=== PATIENT | male | born 1950 | race Caucasian/White ===

== ENCOUNTER 2017-02-27 05:21 | Day surgery (SDC) | payer MEDICARE ==
[~2017-02-27] VITALS: Ht 174 cm; Wt 94.9 kg
[2017-02-27] VITALS (7 sets, daily range): BP systolic 87–125; BP diastolic 51–74; PULSE 80–100; RESP 12–20; TEMP 97.2–98.2; O2SAT 95–99; Ht 174 cm; Wt 94.9 kg
[~2017-02-27 05:21] MED LIST: ASPI-611 PO; ATOR20TA59 PO; LISI-114 PO; METF10002 PO; METO100T97 PO
--- OUTSIDE RECORDS SUMMARY | 2017-02-27 05:25 | XMS REPORT | Referral Summary ---
Author Author [facility] Organization [facility] Address Unknown Phone Unavailable Care Team Providers Care Farmer And Grazier Name Role Phone Helena Vasquez Primary Care Physician [phone] Encounter VC Date(s): 06/07/16 - 06/07/16 [facility] [address] [place] [address] FLAKITA Prajapati [id number] Discharge Disposition: 01-Home or Self Care Attending Physician: Shahid Vasquez MD Admitting Physician: Shahid Vasquez MD Vital Signs Most recent to 1 oldest [Reference Range]: Temperature Tympanic 36.2 degC [36.6-38.1 degC] *LOW* (06/07/16 7:23 AM) Peripheral Pulse 80 bpm Rate [60-100 bpm] (06/07/16 7:23 AM) Blood Pressure 130/70 mmHg [90-140/60-90 mmHg] (06/07/16 7:23 AM) SpO2 96 % (06/07/16 7:23 AM) Problem List Condition Effective Dates Status Health Status Informant Benign essential Active hypertension(Confirm ed) BPH with urinary Active obstruction(Confirme d) Mild CAD(Confirmed) Active Hypercholesterolemia Active (Confirmed) Chronic radicular Active low back pain(Confirmed) Well controlled type Active 2 diabetes mellitus(Confirmed) Allergies, Adverse Reactions, Alerts Substance Reaction Severity Status kimberly bose Active Medications Aspirin Low Dose 81 mg, Oral, Daily, 0 Refill(s) Start Date: 12/06/15 Status: Ordered Crestor 10 mg oral tablet 10 mg 1 tabs, Oral, Daily, # 90 tabs, 3 Refill(s), Pharmacy: [facility], 1 tabs Oral Daily,x90 days Start Date: 06/07/16 Stop Date: 06/02/17 Status: Ordered lisinopril 5 mg oral tablet 5 mg 1 tabs, Oral, Daily, # 90 tabs, 3 Refill(s), Pharmacy: [facility], 1 tabs Oral Daily,x90 days Start Date: 06/07/16 Stop Date: 06/02/17 Status: Ordered metFORMIN 500 mg oral tablet, extended release 500 mg 1 tabs, Oral, BID, # 180 tabs, 3 Refill(s), Pharmacy: [facility], 1 tabs Oral BID,x90 days Start Date: 06/07/16 Stop Date: 06/02/17 Status: Ordered metoprolol succinate 100 mg oral tablet, extended release 100 mg 1 tabs, Oral, Daily, not the Tartrate, # 90 tabs, 3 Refill(s), Pharmacy: [facility] Start Date: 06/07/16 Status: Ordered Results No data available for this section Immunizations Vaccine Date Refusal Reason pneumococcal 13-valent conjugate vaccine 12/06/15 Procedures Procedure Date Related Diagnosis Body Site Retinal detachment1 2014 Discectomy for intervertebral herniated disc, 2013 nucleus pulposus2 Cardiac catheterization3 2008 Colonoscopy4 03/16/08 Sigmoidoscope5 01/06/08 Discectomy6 1987 1left eye buckling procedure by Dr. Meyer 2in [place]--lumbar discectomy 3stents in 2 coronary arteries--Dr. Steward 4polyp at 50 cm. from the anal verge- benign, sigmoid diverticulosis 5lg. pedunculated polyp of 1 cm at 42 cm , biopsied-yperplastic polyp 6C5-[address] Wilcox Social History Social History Type Response Smoking Status Former smoker; Type: Cigarettes1 1Quit over 50 years ago Assessment and Plan Extracted from: Title: Ambulatory Patient Education Author: Shahid Vasquez MD Date: 06/07 Preventive Medicine Heart Disease Prevention Heart disease is a leading cause of . There are many things you can do to help prevent heart disease. BE PHYSICALLY ACTIVE Physical activity is good for your heart. It helps control your blood pressure, cholesterol levels, and weight. Try to be physically active every day. Ask your health care provider what activities are best for you. BE A HEALTHY WEIGHT Extra weight can strain your heart and affect your blood pressure and cholesterol levels. Lose weight with diet and exercise if recommended by your health care provider. EAT HEART-HEALTHY FOODS Follow a healthy eating plan as recommended by your health care provider or dietitian. Heart-healthy foods include: High-fiber foods. These include oat bran, oatmeal, and whole-grain breads and cereals. Fruits and vegetables. Avoid: Alcohol. Fried foods. Foods high in saturated fat. These include meats, butter, whole dairy products, shortening, and coconut or palm oil. Salty foods. These include canned food, luncheon meat, salty snacks, and fast food. KEEP YOUR CHOLESTEROL LEVELS UNDER CONTROL Cholesterol is a substance that is used for many important functions. When your cholesterol levels are high, cholesterol can stick to the insides of your blood vessels, making them narrow or clog. This can lead to chest pain (angina) and a heart attack. Keep your cholesterol levels under control as recommended by your health care provider. Have your cholesterol checked at least once a year. Target cholesterol levels (in mg/dL) for most people are: Total cholesterol below 200. LDL cholesterol below 100. HDL cholesterol above 40 in men and above 50 in women. Triglycerides below 150. KEEP YOUR BLOOD PRESSURE UNDER CONTROL Having high blood pressure (hypertension) puts you at risk for stroke and other forms of heart disease. Keep your blood pressure under control as recommended by your health care provider. Ask your health care provider if you need treatment to lower your blood pressure. If you are 1839 years of age, have your blood pressure checked every 35 years. If you are 40 years of age or older, have your blood pressure checked every year. DO NOT USE TOBACCO PRODUCTS Tobacco smoke can damage your heart and blood vessels. Do not use any tobacco products including cigarettes, chewing tobacco, or electronic cigarettes. If you need help quitting, ask your health care provider. TAKE MEDICINES DIRECTED Take medicines only as directed by your health care provider. Ask your health care provider whether you should take an aspirin every day. Taking aspirin can help reduce your risk of heart disease and stroke. FOR MORE INFORMATION To find out more about heart disease, visit the [place] [employer]'s website at www.americanheart.org This information is not intended to replace advice given to you by your health care provider. Make sure you discuss any questions you have with your health care provider. Document Released: 06/24/2005 Document Revised: 12/01/2015 Document Reviewed: Exit[employer] Patient Information 2016 [employer] [facility]. No follow up information was provided. Extracted from: Title: Male physical Author: Pedro, Shahid B MD Date: 06/07/16 Impression and Plan Diagnosis Mild CAD (NTE16-LN I25.10, Working, Medical). Benign essential hypertension (LVQ81-BT I10, Working, Medical). Hypercholesterolemia (YQV88-AZ E78.0, Working, Medical). BPH with urinary obstruction (DIX35-VU N40.1, Working, Medical). Chronic radicular low back pain (CLQ09-XQ M54.10, Working, Medical). Well controlled type 2 diabetes mellitus (XRS54-ZW E11.9, Working, Medical). Obesity (MXR20-DS E66.9, Working, Medical). Plan: 1) Healthy diet and daily exercise helps most things. 2) Continue your current meds. 3) Schedule a colonoscopy by seeing Dr. Lee. 4) Get fasting lab. 5) Immunizations recommended: Twinrix (hepatitis A and B) series of 3; Shingles vaccine. You said that you didn't want the Pneumovax vaccine. 6) See me in one year and as needed. 7) You weren't interested in a sleep study to evaluate for sleep apnea, which I would recommend. . Orders Orders (Selected) Outpatient Orders Ordered Office Visit Level 5 Est 12526: . Dx/Order Association Plan: Diagnosis: BPH with urinary obstruction Comment: Ordered: Office Visit Level 5 Est 33839; 06/07/16 8:02:00 CDT, Well controlled type 2 diabetes mellitus | Mild CAD | Benign essential hypertension | BPH with urinary obstruction | Hypercholesterolemia Diagnosis: Benign essential hypertension Comment: Ordered: Office Visit Level 5 Est [id number]; 06/07/16 8:02:00 CDT, Well controlled type 2 diabetes mellitus | Mild CAD | Benign essential hypertension | BPH with urinary obstruction | Hypercholesterolemia Diagnosis: Chronic radicular low back pain Comment: Diagnosis: Hypercholesterolemia Comment: Ordered: Office Visit Level 5 Est [id number]; 06/07/16 8:02:00 CDT, Well controlled type 2 diabetes mellitus | Mild CAD | Benign essential hypertension | BPH with urinary obstruction | Hypercholesterolemia Diagnosis: Mild CAD Comment: Ordered: Office Visit Level 5 Est [id number]; 06/07/16 8:02:00 CDT, Well controlled type 2 diabetes mellitus | Mild CAD | Benign essential hypertension | BPH with urinary obstruction | Hypercholesterolemia Diagnosis: Obesity Comment: Diagnosis: Well controlled type 2 diabetes mellitus Comment: Ordered: Office Visit Level 5 Est [id number]; 06/07/16 8:02:00 CDT, Well controlled type 2 diabetes mellitus | Mild CAD | Benign essential hypertension | BPH with urinary obstruction | Hypercholesterolemia End of Orders ."
--- NOTE | 2017-02-27 05:45 | NUR ---
Pt arrival clinical staff anesthesiologist notified by house player that this pt was in waiting room waiting to be admitted for procedure. drawing kiln supervisor verbalized to clinical staff anesthesiologist that pt is diabetic, blood sugar may be low, pts head fell back while sitting in chair, feels light headed, clammy. This RN to waiting area with wheelchair. pt is responsive at this time. assisted to wheelchair x2, then admitted to preop room 5. Blood sugar obtained at this time, with a result of 116. Pt states that he does not check blood sugar at home, but this is probably lower than normal because he has not eaten. Vital signs also obtained, all WNL. Pt admitted, call light within reach, bed rail up x2.
--- NOTE | 2017-02-27 06:35 | NUR ---
status/anesthesia Pt calls nursing staff and states that he is feeling light headed again, nauseated. Alcon Black CRNA here. notified. Alcon in room to assess pt. Pt states that "the feeling comes and goes where I feel like I need to pass out." bed rail up x2. call light within reach. Marc Reddy CRNA notified via phone by Alcon Black CRNA. Orders to open up fluids at this time. Will continue to monitor.
[2017-02-27] MEDS ORDERED: LIDOCAINE 1% (10mg/ml) 2ml SDV INJ ONE (07:00)
[2017-02-27] MEDS ORDERED: LR 1,000 ML IV SCH (07:00)
--- NOTE | 2017-02-27 07:24 | ANESPREOP ---
Anesthesia Record Date and Time DATE: 02/27/17 TIME: 07:22 Pre-Op Diagnosis screening Proposed Surgical Procedure COLONOSCOPY NPO since: mn Allergies: Coded Allergies: nabumetone (Verified Allergy, Unknown, 02/27/17) Ht/Wt/BMI Height: 5 ' 8.50 " Weight: 94.900 kg BMI: 31.4 kg/m2 Vital Signs Date Time Temp Pulse Resp B/P Pulse Ox O2 Delivery O2 Flow Rate FiO2 02/27/17 06:15 98.2 100 15 116/71 95 Room Air Medications Inpatient Medications Current Medications Medications (Trade) Dose Ordered Sig/Emily Start Time Stop Time Status Last Admin Dose Admin Lactated Ringer's (Lactated Ringers) 1,000 ml @ 50 mls/hr Q20H 02/27/17 07:00 02/27/17 06:33 50 MLS/HR Aspirin (Aspirin) 81 Mg Tablet, 81 MG PO DAILY, (Reported) Last Taken: on 02/20/17 Atorvastatin Calcium (Atorvastatin Calcium) 20 Mg Tablet, 1 TAB PO HS, (Reported) Last Taken: on 02/26/172129 Lisinopril (Lisinopril) 5 Mg Tablet, 5 MG PO DAILY, (Reported) Last Taken: on 02/26/172129 Metformin HCl (Metformin HCl) 1,000 Mg Tablet, 1 TAB PO BIDWM, (Reported) Take one tablet, by mouth, twice daily with meals Last Taken: on 02/26/172129 Metoprolol Tartrate (Metoprolol Tartrate) 100 Mg Tablet, 100 MG PO DAILY, (Reported) Last Taken: on 02/26/17 0800 Discontinued Medications Metformin Hcl (Metformin Hcl) 500 Mg Tablet, 500 MG PO DAILY, (Reported) Currently on Beta Delano: Yes Beta Delano Last Taken: metoprolol 100mg 02/26/17 at 0800 Medical/Surgical History Anesthesia PMH: Reports: *Diabetes (niddm ), *Hypertension (mi 7 yrs ago, Seen Dr. Steward 2 weeks ago, stress test and cleared for surg ), CVA/Stroke/TIA, Reflux (OCC), Denies: *Angina, *PA, Anesthesia Reactions (NO AIRWAY ISSUES), Arthritis, Asthma, CHF, COPD, Cancer, Clotting Problems, Glaucoma, Hiatal Hernia , Malignant Hyperthermia, Pneumonia, Renal Disease, Seizures, Sleep Apnea, Thyroid Disease, Tuberculosis Smoking Status: Never smoker Has pt. smoked today?: No Use Chewing Tobacco?: No Second Hand Exposure: No Substance Use Type: does not use Past Surgical History Orthopedic Surgeries: Abdominal Surgeries: Genitourinary Surgeries: Cardiac Surgeries: Yes - CATH WITH STENTS Endocrine Surgeries: Reproductive Surgeries: Neurological Surgeries: Ear Surgeries: Nose Surgeries: Throat Surgeries: Other Surgeries: Anesthesia Adverse Reactions: FOUND none Pertinent Findings EKG Rhythm: Sinus Rhythm Physical Exam Respiratory: Bilat breath sounds equal, Lungs clear Cardiovascular: FOUND Regular rate, rhythm, FOUND No murmur Airway Assessment TMD: 3 Fingerbreadths Neck Extension: Fair Overall Assessment: No Airway Concerns ASA: 3 Plan Anesthesia Plan: TIVA Discussion Discussed risks/options/alternatives of anesthesia and questions answered. Patient consents. Nursing pain assessment noted. Attestation Statement Prior to the delivery of any anesthetic medication, I examined the patient, developed the plan, obtained the patient's consent and discussed the risk and benefits of the procedure with the patient/guardian. MATT SINGER CRNA Feb 27, 2017 07:24
[2017-02-27] MEDS ORDERED: LIDOCAINE 2% (20mg/ml) 5ml PF SDV ONE (07:28)
[2017-02-27] MEDS ORDERED: PROPOFOL 500mg 50 ML IV ONE (07:28)
--- NOTE | 2017-02-27 09:21 | ANESPO ---
Post-Op Note Date 02/27/17 Time: 09:00 Status Pt Participated in Evaluation: Pt participated in person Vital Signs Date Time Temp Pulse Resp B/P Pulse Ox O2 Delivery O2 Flow Rate FiO2 02/27/17 08:55 82 20 125/71 99 Room Air 02/27/17 08:03 97.2 Respiratory Function: Airway patent Cardiovascular Function: Regular pulse Mental Status: Alert/oriented Pain Level Intensity: 0 Hydration: IV infusing Complications during Recovery None apparent Follow-Up Instructions Instructions Per Surgeon MATT SINGER CRNA Feb 27, 2017 09:21
--- NOTE | 2017-02-27 15:47 | OPNOTEF ---
DATE OF SERVICE 02/27/17 SURGEON Quinn Lee MD PREOPERATIVE DIAGNOSIS Colorectal cancer surveillance/personal history for colon polyps. POSTOPERATIVE DIAGNOSES Colorectal cancer surveillance/personal history for colon polyps, minimal sigmoid diverticulosis. PROCEDURE Colonoscopy. ANESTHESIA TIVA BRIEF HISTORY/INDICATIONS Mr. Manzanares is a 66-year-old gentleman who about ten years ago had undergone a colonoscopy and was found to have a polyp within the colon. This was not adenomatous in nature. Patient presents today to undergo followup colonoscopy. For completeness please refer to notes included in the patient's chart. FINDINGS Upon colonoscopy was no evidence for angiodysplastic lesions, polyps or geoff malignancies. He was found have a few scattered diverticula within the sigmoid colon region. NARRATIVE OF PROCEDURE After informed consent was obtained the patient was brought to the endoscopy suite and placed on the table in left lateral decubitus position. Patient subsequently underwent total intravenous anesthesia by the nurse shellfish sorter at my request. Formal timeout was then completed. Next, a digital rectal examination was performed. Normal sphincter tone. No rectal masses were appreciated. An Olympus colonoscope was inserted into the anus and advanced through the lumen of the colon under direct visualization at all times until the cecum was ascertained. Triangulation of the tenia coli, ileocecal valve and appendiceal lumen were all visualized. The scope was slowly withdrawn, maintaining visualization of the lumen at all times. As stated above, the entire colon was without evidence for angiodysplastic lesions, polyps or geoff malignancies. He was found to have a few diverticula within the sigmoid colon region. Once the colonoscope was drawn back to the rectal vault a J-maneuver was performed. No worrisome perianal pathology was noted. Scope was allowed to straighten and was withdrawn through the anal verge. Patient tolerated the procedure without difficulty and was sent back to the preop area in stable condition. Secondary to the absence of findings upon this colonoscopy I believe the patient will not need to undergo a repeat colonoscopy until ten years from now unless new specific indications should arise in the future. DIANA
== END 2017-02-27 09:04 | disposition home or self-care (01) ==
LOC: SCU 05:21
PROVIDERS: ATTEND Surgery
DX: Z12.11 Encounter for screening for malignant neoplasm of colon (principal); Z86.010 Personal history of colon polyps; K57.30 Diverticulosis of large intestine without perforation or abscess without bleeding; E11.9 Type 2 diabetes mellitus without complications; I10 Essential (primary) hypertension; I25.10 Atherosclerotic heart disease of native coronary artery without angina pectoris; I25.2 Old myocardial infarction; K21.9 Gastro-esophageal reflux disease without esophagitis; E78.00 Pure hypercholesterolemia, unspecified; N40.1 Benign prostatic hyperplasia with lower urinary tract symptoms; N13.8 Other obstructive and reflux uropathy; E66.9 Obesity, unspecified; Z79.84 Long term (current) use of oral hypoglycemic drugs; Z79.82 Long term (current) use of aspirin; Z79.899 Other long term (current) drug therapy; Z88.1 Allergy status to other antibiotic agents; Z86.73 Personal history of transient ischemic attack (TIA), and cerebral infarction without residual deficits; Z95.5 Presence of coronary angioplasty implant and graft; Z68.32 Body mass index [BMI] 32.0-32.9, adult; Z87.891 Personal history of nicotine dependence
CPT/HCPCS: 82948; G0105; J7120